=== PATIENT | female | born 1940 | race Caucasian/White ===

== ENCOUNTER 2017-06-05 14:54 | Inpatient (IN) | payer OTHER ==
[2017-06-05] MEDS ORDERED: PATIENT'S HOME MEDICATION INH SCH (16:00)
[2017-06-05] MEDS: DUONEB 0.5 MG/3 MG NEB SCH ×3 (17:00→20:47)
[2017-06-05 17:16] LABS: BASOPHILS # (AUTO) 0.1 X10^3/uL (0.0-0.1); BASOPHILS % (AUTO) 0.9 % (0.2-1.0); EOSINOPHILS # (AUTO) 0.1 x10^3/uL (0.0-0.2); EOSINOPHILS % (AUTO) 1.9 % (0.9-2.9); HEMATOCRIT 39.6 % (36.0-47.0); HEMOGLOBIN 13.8 g/dL (12.0-16.0); LYMPHOCYTES # (AUTO) 1.8 X10^3/uL (1.3-2.9); LYMPHOCYTES % (AUTO) 30.7 % (21.0-51.0); MEAN CORPUSCULAR HEMOGLOBIN 31.1 pg (27.0-34.0); MEAN CORPUSCULAR HGB CONC 34.7 g/dL (33.0-35.0); MEAN CORPUSCULAR VOLUME 89.6 fL (80.0-100.0); MEAN PLATELET VOLUME 7.6 fL (7.4-11.0); MONOCYTES # (AUTO) 0.5 x10^3/uL (0.3-0.8); MONOCYTES % (AUTO) 7.8 % (0.0-13.0); NEUTROPHILS # (AUTO) 3.5 x10^3/uL (2.2-4.8); NEUTROPHILS % (AUTO) 58.7 % (42.0-75.0); PLATELET COUNT 305 X10^3/uL (150.0-450.0); RED BLOOD COUNT 4.43 X10^6/uL (3.5-5.4); WHITE BLOOD COUNT 5.9 X10^3/uL (3.6-10.0)
[2017-06-05 17:30] LABS: ALANINE AMINOTRANSFERASE 29 Units/L (12-78); ALBUMIN 4.2 g/dL (3.4-5.0); ALKALINE PHOSPHATASE 75 Units/L (46-116); ASPARTATE AMINO TRANSFERASE 21 Units/L (15-37); BLOOD UREA NITROGEN 9 mg/dL (7-18); CALCIUM 9.1 mg/dL (8.5-10.1); CHLORIDE 95 mmol/L (98-107); COR NA(FOR HYPERGLY) 134 mmol/L (136-145); CREATININE 0.59 mg/dL (0.55-1.02); SODIUM 133 mmol/L (136-145); TOTAL PROTEIN 7.6 g/dL (6.4-8.2); eGFR BLACK RACES > 60 (>60); eGFR NON BLACK RACES > 60 (>60)
[2017-06-05 17:38] VITALS: BMI 28.3
[2017-06-05] MEDS ORDERED: ZOSYN VIAL 3.375 GM IV ONE (18:05)
--- NOTE | 2017-06-05 18:05 | RAD ---
Chest PA and lateral Indication: Pneumonia Comparison: No recent priors currently available. Findings: There is no pneumothorax, effusion or dense consolidation. Heart size is normal. Mild chron ic interstitial lung changes noted. Impression: No convincing acute chest process seen. Reported By:
[2017-06-05] MEDS ORDERED: NS 100 ML IV + SPIKE MINIBAG* 100 ML IV ONE (18:06)
[2017-06-05] MEDS ORDERED: NS 1/2 1000 ML IV 1,000 ML IV ONE (18:07)
[2017-06-05] MEDS: ZOSYN VIAL 3.375 GM 3.375 GM in NS 100 ML IV + SPIKE MINIBAG* 100 ML IV SCH ×2 (18:35→21:59)
[2017-06-05] MEDS: NS 1/2 1000 ML IV 1,000 ML IV SCH (18:35)
[2017-06-05] MEDS: ROBITUSSIN DM PO SCH ×2 (18:35→21:59)
[2017-06-05] MEDS: PULMICORT NEB TX 0.5 MG NEB SCH (20:47)
[2017-06-05] MEDS ORDERED: PULMICORT NEB TX 0.5 MG NEB SCH (21:00)
[2017-06-05] MEDS: TUSSIONEX PENNKINETIC SUSP PO PRN (21:56)
[2017-06-06 06:16] LABS: BASOPHILS % (AUTO) 0.8 % (0.2-1.0); EOSINOPHILS # (AUTO) 0.1 x10^3/uL (0.0-0.2); EOSINOPHILS % (AUTO) 2.5 % (0.9-2.9); HEMATOCRIT 34.4 % (36.0-47.0); LYMPHOCYTES # (AUTO) 1.6 X10^3/uL (1.3-2.9); LYMPHOCYTES % (AUTO) 29.2 % (21.0-51.0); MEAN CORPUSCULAR HEMOGLOBIN 31.1 pg (27.0-34.0); MEAN CORPUSCULAR HGB CONC 34.9 g/dL (33.0-35.0); MEAN CORPUSCULAR VOLUME 89.2 fL (80.0-100.0); MEAN PLATELET VOLUME 7.8 fL (7.4-11.0); MONOCYTES # (AUTO) 0.6 x10^3/uL (0.3-0.8); MONOCYTES % (AUTO) 10.9 % (0.0-13.0); NEUTROPHILS # (AUTO) 3.1 x10^3/uL (2.2-4.8); NEUTROPHILS % (AUTO) 56.6 % (42.0-75.0); PLATELET COUNT 252 X10^3/uL (150.0-450.0); RED BLOOD COUNT 3.85 X10^6/uL (3.5-5.4); RED CELL DISTRIBUTION WIDTH 15.8 % (11.6-16.5); WHITE BLOOD COUNT 5.4 X10^3/uL (3.6-10.0)
[2017-06-06 06:29] LABS: ALANINE AMINOTRANSFERASE 25 Units/L (12-78); ALBUMIN 3.6 g/dL (3.4-5.0); ALKALINE PHOSPHATASE 62 Units/L (46-116); ASPARTATE AMINO TRANSFERASE 17 Units/L (15-37); BLOOD UREA NITROGEN 11 mg/dL (7-18); CALCIUM 8.3 mg/dL (8.5-10.1); CARBON DIOXIDE 30.8 mmol/L (21-32); CHLORIDE 98 mmol/L (98-107); COR NA(FOR HYPERGLY) 137 mmol/L (136-145); CREATININE 0.65 mg/dL (0.55-1.02); SODIUM 136 mmol/L (136-145); TOTAL PROTEIN 6.6 g/dL (6.4-8.2); eGFR BLACK RACES > 60 (>60); eGFR NON BLACK RACES > 60 (>60)
[2017-06-06] MEDS: ZOSYN VIAL 3.375 GM 3.375 GM in NS 100 ML IV + SPIKE MINIBAG* 100 ML IV SCH ×3 (06:34→21:23)
[2017-06-06] MEDS: NS 1/2 1000 ML IV 1,000 ML IV SCH ×3 (06:35→21:24)
--- NOTE | 2017-06-06 07:15 | RAD ---
HISTORY: Follow-up pneumonia Study: Chest one view Comparison: 06/05/2017 Findings: The trachea is midline. The cardiac silhouette is unremarkable. The aorta is calcified. The lungs ar e clear without focal infiltrate or effusion. The bony thorax is unremarkable. IMPRESSION: 1. No acute cardiopulmonary disease. Reported By:
[2017-06-06] MEDS: ROBITUSSIN DM PO SCH (08:39)
[2017-06-06] MEDS: DUONEB 0.5 MG/3 MG NEB SCH ×4 (08:52→20:57)
[2017-06-06] MEDS: PULMICORT NEB TX 0.5 MG NEB SCH ×2 (08:52→20:57)
--- NOTE | 2017-06-06 10:23 | DR.UPDATE ---
H&P Update History and Physical Update: WAS SEEN IN THE OFFICE ON 06/05/17. A H&P WAS COMPLETED PRIOR TO ADMISSION. PATIENT HAS BEEN SEEN AND EXAMINED WITH NO CHANGES NOTED TO H&P. Changes noted: NO Yes with the following:
[2017-06-06] MEDS ORDERED: NS 1/2 1000 ML IV 1,000 ML IV ONE (12:56)
[2017-06-06] MEDS: TAMIFLU PO SCH ×2 (13:13→21:23)
[2017-06-06] MEDS: MUCINEX DM PO SCH ×2 (13:15→21:24)
[2017-06-06] MEDS: TUSSIONEX PENNKINETIC SUSP PO PRN (13:20)
[2017-06-06] MEDS: MUCOMYST 20% 200 MG/ML NEB SCH (20:57)
[2017-06-07] MEDS: NS 1/2 1000 ML IV 1,000 ML IV SCH ×3 (00:25→20:48)
[2017-06-07] MEDS ORDERED: NS 1/2 1000 ML IV 1,000 ML IV ONE ×2 (01:29→20:35)
[2017-06-07] MEDS: ZOSYN VIAL 3.375 GM 3.375 GM in NS 100 ML IV + SPIKE MINIBAG* 100 ML IV SCH ×3 (06:12→20:59)
[2017-06-07 06:48] LABS: BASOPHILS # (AUTO) 0.1 X10^3/uL (0.0-0.1); BASOPHILS % (AUTO) 1.1 % (0.2-1.0); EOSINOPHILS # (AUTO) 0.1 x10^3/uL (0.0-0.2); EOSINOPHILS % (AUTO) 2.2 % (0.9-2.9); HEMATOCRIT 32.9 % (36.0-47.0); HEMOGLOBIN 11.4 g/dL (12.0-16.0); LYMPHOCYTES # (AUTO) 1.3 X10^3/uL (1.3-2.9); LYMPHOCYTES % (AUTO) 23.5 % (21.0-51.0); MEAN CORPUSCULAR HEMOGLOBIN 31.3 pg (27.0-34.0); MEAN CORPUSCULAR HGB CONC 34.7 g/dL (33.0-35.0); MEAN CORPUSCULAR VOLUME 90.3 fL (80.0-100.0); MEAN PLATELET VOLUME 7.8 fL (7.4-11.0); MONOCYTES # (AUTO) 0.5 x10^3/uL (0.3-0.8); MONOCYTES % (AUTO) 9.4 % (0.0-13.0); NEUTROPHILS # (AUTO) 3.4 x10^3/uL (2.2-4.8); NEUTROPHILS % (AUTO) 63.8 % (42.0-75.0); PLATELET COUNT 242 X10^3/uL (150.0-450.0); RED BLOOD COUNT 3.65 X10^6/uL (3.5-5.4); RED CELL DISTRIBUTION WIDTH 15.7 % (11.6-16.5); WHITE BLOOD COUNT 5.4 X10^3/uL (3.6-10.0)
[2017-06-07 07:11] LABS: ALANINE AMINOTRANSFERASE 27 Units/L (12-78); ALBUMIN 3.5 g/dL (3.4-5.0); ALKALINE PHOSPHATASE 58 Units/L (46-116); ASPARTATE AMINO TRANSFERASE 18 Units/L (15-37); BLOOD UREA NITROGEN 10 mg/dL (7-18); CALCIUM 8.7 mg/dL (8.5-10.1); CARBON DIOXIDE 29.8 mmol/L (21-32); CHLORIDE 103 mmol/L (98-107); COR NA(FOR HYPERGLY) 142 mmol/L (136-145); CREATININE 0.64 mg/dL (0.55-1.02); SODIUM 141 mmol/L (136-145); TOTAL PROTEIN 6.6 g/dL (6.4-8.2); eGFR BLACK RACES > 60 (>60); eGFR NON BLACK RACES > 60 (>60)
--- NOTE | 2017-06-07 07:22 | RAD ---
HISTORY: Follow-up pneumonia Study: Chest AP portable Comparison: 06/06/2017 Findings: The heart is upper limits normal in size. No congestive heart failure is noted. The aorta is calcifie d. The lungs are mildly hypo inflated which accentuates the heart size. No acute alveolar infiltrates are identified. There is subsegmental atelectasis in the left lung base. IMPRESSION: No definite infiltrates Subsegmental atelectasis left lung base Reported By:
[2017-06-07] MEDS: MUCOMYST 20% 200 MG/ML NEB SCH ×2 (08:40→21:25)
[2017-06-07] MEDS: PULMICORT NEB TX 0.5 MG NEB SCH ×2 (08:40→21:26)
[2017-06-07] MEDS: DUONEB 0.5 MG/3 MG NEB SCH ×4 (08:40→21:25)
[2017-06-07] MEDS: TAMIFLU PO SCH ×2 (09:02→20:45)
[2017-06-07] MEDS: MUCINEX DM PO SCH ×3 (09:02→20:57)
[2017-06-07] MEDS ORDERED: ALBUTEROL SULFATE 90 MCG INH PRN (10:52)
[2017-06-07] MEDS ORDERED: HYDROCHLOROTHIAZIDE PO SCH (11:00)
[2017-06-07] MEDS ORDERED: [UNRECOGNIZED DRUG - OTHER] PO SCH (11:00)
[2017-06-07] MEDS ORDERED: OLMESARTAN PO SCH (11:00)
[2017-06-07] MEDS: TUSSIONEX PENNKINETIC SUSP PO PRN (12:40)
[2017-06-07] MEDS ORDERED: GLUCOPHAGE ONE ×2 (13:25→20:31)
[2017-06-07] MEDS: ZETIA TAB 10 MG PO SCH (13:30)
[2017-06-07] MEDS: GLUCOPHAGE PO SCH ×2 (13:30→20:45)
[2017-06-07] MEDS: BENICAR TAB 40 MG PO SCH (13:30)
[2017-06-07] MEDS: ZOLOFT PO SCH (13:30)
[2017-06-07] MEDS: SYNTHROID 175 mcg TAB PO SCH (13:31)
[2017-06-07] MEDS: HYDROCHLOROTHIAZIDE 12.5 MG CAP PO SCH (13:31)
[2017-06-07] MEDS: DEXLANSOPRAZOLE PO SCH (13:36)
[2017-06-07] MEDS ORDERED: PATIENT'S HOME MEDICATION (Levocetirizine Dihydrochloride [Levocetirizine Dihydrochloride] PO SCH (21:00)
[2017-06-08] MEDS: NS 1/2 1000 ML IV 1,000 ML IV SCH ×2 (00:13→05:15)
[2017-06-08] MEDS: ZOSYN VIAL 3.375 GM 3.375 GM in NS 100 ML IV + SPIKE MINIBAG* 100 ML IV SCH (05:14)
[2017-06-08 06:41] LABS: BASOPHILS % (AUTO) 0.8 % (0.2-1.0); EOSINOPHILS # (AUTO) 0.2 x10^3/uL (0.0-0.2); EOSINOPHILS % (AUTO) 2.9 % (0.9-2.9); HEMATOCRIT 31.8 % (36.0-47.0); HEMOGLOBIN 11.1 g/dL (12.0-16.0); LYMPHOCYTES # (AUTO) 1.3 X10^3/uL (1.3-2.9); LYMPHOCYTES % (AUTO) 23.5 % (21.0-51.0); MEAN CORPUSCULAR HEMOGLOBIN 31.5 pg (27.0-34.0); MEAN CORPUSCULAR VOLUME 90.1 fL (80.0-100.0); MEAN PLATELET VOLUME 7.7 fL (7.4-11.0); MONOCYTES # (AUTO) 0.6 x10^3/uL (0.3-0.8); MONOCYTES % (AUTO) 10.1 % (0.0-13.0); NEUTROPHILS # (AUTO) 3.5 x10^3/uL (2.2-4.8); NEUTROPHILS % (AUTO) 62.7 % (42.0-75.0); PLATELET COUNT 240 X10^3/uL (150.0-450.0); RED BLOOD COUNT 3.53 X10^6/uL (3.5-5.4); RED CELL DISTRIBUTION WIDTH 15.5 % (11.6-16.5); WHITE BLOOD COUNT 5.6 X10^3/uL (3.6-10.0)
[2017-06-08 06:57] LABS: ALANINE AMINOTRANSFERASE 26 Units/L (12-78); ALBUMIN 3.5 g/dL (3.4-5.0); ALKALINE PHOSPHATASE 56 Units/L (46-116); ASPARTATE AMINO TRANSFERASE 17 Units/L (15-37); BLOOD UREA NITROGEN 9 mg/dL (7-18); CALCIUM 8.2 mg/dL (8.5-10.1); CARBON DIOXIDE 29.4 mmol/L (21-32); CHLORIDE 102 mmol/L (98-107); COR NA(FOR HYPERGLY) 140 mmol/L (136-145); CREATININE 0.59 mg/dL (0.55-1.02); SODIUM 139 mmol/L (136-145); TOTAL PROTEIN 6.3 g/dL (6.4-8.2); eGFR BLACK RACES > 60 (>60); eGFR NON BLACK RACES > 60 (>60)
--- NOTE | 2017-06-08 07:51 | RAD ---
HISTORY: Follow-up pneumonia Study: Chest AP portable Comparison: 06/07/2017 Findings: The heart is upper limits normal in size. No congestive heart failure is noted. The aorta is calcifie d. The lungs are well inflated. There is a question of a developing right basilar lung infiltrate. Fo llow-up of this area is recommended. The remainder of the lung arellano are clear. No pleural effusions are identified. The bony thorax is unremarkable. IMPRESSION: Possible developing right basilar lung infiltrate. Continued follow-up of this area is recommended. Reported By:
[2017-06-08] MEDS ORDERED: GLUCOPHAGE ONE (08:43)
[2017-06-08] MEDS: GLUCOPHAGE PO SCH (08:58)
[2017-06-08] MEDS: MUCINEX DM PO SCH (08:58)
[2017-06-08] MEDS: TAMIFLU PO SCH (08:58)
[2017-06-08] MEDS: HYDROCHLOROTHIAZIDE 12.5 MG CAP PO SCH (08:58)
[2017-06-08] MEDS: ZOLOFT PO SCH (08:58)
[2017-06-08] MEDS: BENICAR TAB 40 MG PO SCH (08:58)
[2017-06-08] MEDS: SYNTHROID 175 mcg TAB PO SCH (08:58)
[2017-06-08] MEDS: ZETIA TAB 10 MG PO SCH (08:58)
[2017-06-08] MEDS: DEXLANSOPRAZOLE PO SCH (09:00)
[2017-06-08] MEDS: DUONEB 0.5 MG/3 MG NEB SCH ×2 (09:02→12:00)
[2017-06-08] MEDS: MUCOMYST 20% 200 MG/ML NEB SCH (09:03)
[2017-06-08] MEDS: PULMICORT NEB TX 0.5 MG NEB SCH (09:03)
[2017-06-08 12:50] VITALS: BP 147/87
== END 2017-06-08 13:40 | disposition home or self-care (01) | DRG 195 ==
LOC: MED/SURG 14:54
PROVIDERS: ADMIT Internal Medicine; ATTEND Internal Medicine
DX: J10.1 Influenza due to other identified influenza virus with other respiratory manifestations (principal); J18.8 Other pneumonia, unspecified organism; J20.8 Acute bronchitis due to other specified organisms; B96.5 Pseudomonas (aeruginosa) (mallei) (pseudomallei) as the cause of diseases classified elsewhere
CPT/HCPCS: 36415; 71045; 71046; 80053; 85025; 87040; 87070; 87077; 87186; 87205; 87502; 94640; 94760; A4222; G9035; J2543; J7608; J7620; J7626